=== PATIENT | female | born 1945 | race Caucasian/White ===

== ENCOUNTER 2024-08-02 12:07 | Emergency (ER) | payer OTHER ==
--- OUTSIDE RECORDS SUMMARY | 2024-08-02 12:11 | XMS REPORT | Continuity of Care Document ---
Author Name Unknown Address [address] [address] [place] [address] [facility] thconnect Address [address] [place] [address] Care Team Providers Care Bench Worker Binding Name Role Phone Unavailable Unavailable Unavailable Encounters Start Date/Time End Date/Time Encounter Type Admission Type Attending Clinicians Care Facility Care Department Encounter ID Source 2024-05-16 13:06:00 Outpatient [facility] [id number] [facility] 2023-12-08 16:20:00 Outpatient [facility] [id number] [facility] 2023-09-21 08:34:02 Outpatient [facility] [id number] [facility] 2023-06-01 13:59:01 2023-06-01 13:59:01 Outpatient [facility] [id number] Denny F Esau 2023-03-24 09:03:10 2023-03-24 09:03:10 Outpatient [facility] [id number] Denny F Esau 2023-03-17 16:33:35 2023-03-17 16:33:35 Outpatient [facility] [id number] Denny F Esau 2023-03-04 14:29:42 2023-03-04 14:29:42 Outpatient [facility] [id number] Denny Cifuentes Results Test Description Test Time Test Comments Results Result Co mments Source HEPATITIS PANEL, [id number] 04:38:46* Test Item Value Reference Range Interpretation Comme nts HEPATITIS A IgM (test code = 22189) NON-REACTIVE NON-REACTIVE HEPATITIS B CORE IgM (test code = 4644) NON-REACTIVE NON-REACTIVE HEPATITIS B SURF AG (test code = 2739) NON-REACTIVE NON-REACTIVE HEPATITIS C ANTIBODY (test code = 4675) NON-REACTIVE NON-REACTIVE INTERPRETATION HEPATITIS A: (test code = 2552) (NOTE) Hepatitis A sero logy shows no evidence of acute hepatitis A. INTERPRETATION HEPATITIS B: (test code = 46734) (NOTE) Hepatitis B sero logy shows no evidence of acute hepatitis B andno indication of exposure to hepatitis B virus in the previous dorota eight months. INTERPRETATION HEPATITIS C: (test code = 57893) (NOTE) Hepatitis C sero logy shows no evidence of exposure to hepatitisC virus at this time. It can take up to 12 months after exposure tothe hepatitis C virus for antibodies to become detectable in the blood in certain patients. UNLESS OTHERWISE INDICATED, ALL TESTING PERFORMED AT [facility] [address] [place] [address] COAL TRAMMER: SUSAN MORAN M.D. CLIA NUMBER [id number] [place]. [id number] CBC W/AUTO DIFF WITH [id number] 04:33:17* Test Item Value Reference Range Interpretation Comme nts WBC (test code = 1001) 5.6 K/UL 3.5-11.0 RBC (test code = 1002) 4.79 M/UL 3.80-5.40 HEMOGLOBIN (test code = 1003) 11.9 G/DL 11.5-15.5 HEMATOCRIT (test code = 1004) 37.0 % 34.0-45.0 MCV (test code = 1005) 77.2 fL 80.0-99.0 L MCH (test code = 1006) 24.8 PG 25.0-33.0 L MCHC (test code = 1007) 32.2 G/DL 31.0-36.0 RDW (test code = 1038) 16.1 % 11.5-15.0 H NEUTROPHILS (test code = 1008) 63.1 % LYMPHOCYTES (test code = 1010) 27.2 % MONOCYTES (test code = 1011) 9.3 % EOSINOPHILS (test code = 1012) 0.0 % BASOPHILS (test code = 1013) 0.2 % IMMATURE GRANULOCYTES (test code = 1036) 0.2 % NUCLEATED RBCS (test code = 1065) 0.0 /100 WBC'S See_Comment [Automated messa ge] The system which generated this result transmitted reference range: 0.0. The reference range was not used to interpret this result as normal/abnormal. PLATELET COUNT (test code = 1015) 223 K/UL 130-400 ABSOLUTE NEUTROPHILS (test code = 1066) 3.55 K/UL 1.50-7.50 ABSOLUTE LYMPHOCYTES (test code = 1067) 1.53 K/UL 1.00-4.00 ABSOLUTE MONOCYTES (test code = 1068) 0.52 K/UL 0.20-1.00 ABSOLUTE EOSINOPHILS (test code = 1040) 0.00 K/UL 0.00-0.50 ABSOLUTE BASOPHILS (test code = 1069) 0.01 K/UL 0.00-0.20 ABS IMMATURE GRANULOCYTES (test code = 1020) 0.01 K/UL 0.00-0.10 ABS NUCLEATED RBCS (test code = 05848) 0.00 K/UL 0.00-0.11 RPR REFLEX TO T. PALLIDUM - [id number] 03:32:36* Test Item Value Reference Range Interpretation Comme nts RPR (test code = 34742) NON-REACTIVE NON-REACTIVE RPR TITER (test code = 3500) NOT INDIC. TITER NOT INDIC.
[2024-08-02 13:17] LABS: Absolute Lymphocytes (CBC) 1.4 K/uL (0.7-4.9); Absolute Monocytes 0.4 K/uL (0.1-1.3); Absolute Neutrophil 3.9 K/uL (1.8-8.0); Basophils % 0.3 % (0-1.3); Hematocrit 40.8 % (36.0-45.0); Hemoglobin 13.1 g/dL (12.0-15.0); Lymphocytes % 24.1 % (15.3-44.8); MCH 24.1 pg (27.0-35.0); MCHC 32.2 g/dL (32.0-36.0); MCV 74.9 fL (80-100); MPV 7.6 fL (7.6-11.3); Monocytes % 7.4 % (3.3-12.3); Neutrophils % 68.2 % (41.7-73.7); Nucleated Red Blood Cells % 0.2 % (0-0); Platelets 247 thou/uL (152-406); RBC Red Blood Cell Count 5.44 M/uL (3.86-4.86); Red Cell Distribution Width 15.9 % (12.1-15.2)
[2024-08-02 13:19] LABS: PT Prothrombin Time 11.3 SECONDS (9.4-12.5); PTT, Activated Partial Thromb 29.7 SECONDS (24.3-36.9); Protime INR 1.01
[2024-08-02 13:45] LABS: Albumin 3.7 g/dL (3.4-5.0); Albumin/Globulin Ratio 1.1 (1.1-1.8); Anion Gap 7.8 mEq/L (5.0-15.0); Bilirubin Direct 0.2 mg/dL (0-0.2); Bilirubin Indirect, Calculated 0.3 mg/dL (0.2-0.8); Bilirubin Total 0.5 mg/dL (0.2-1.0); Globulin 3.4 g/dL (2.3-3.5); Magnesium 2.4 mg/dL (1.6-2.4); Potassium 3.8 mEq/L (3.5-5.1); Protein, Total 7.1 g/dL (6.4-8.2); Troponin High Sensitivity 4.1 pg/mL (<58.9)
--- NOTE | 2024-08-02 15:12 | RAD REPORT ---
EXAMINATION: MRI BRAIN WITHOUT CONTRAST CLINICAL INDICATION: r/o stroke TECHNIQUE: Multiplanar multisequence MR images of the brain were obtained without intravenous contras t. Unless otherwise specified, incidental findings do not require dedicated imaging follow-up. COMPARISON: No prior exam. FINDINGS: INTRACRANIAL: Diffusion-weighted images show no acute or early subacute infarction. There is mild bra in atrophy with mildT2/FLAIR hyperintensities in the periventricular and deep white matter regions, likely representing chronic microvascular ischemic changes. There is no mass effect or midline shift. No abnormal extraaxial fluid collection. VASCULATURE: Normal signal voids in the larger intracranial arteries and dural venous sinuses. SINUSES: The paranasal sinuses and mastoid air cells are predominantly clear. BONE: The marrow signal pattern is within normal limits. IMPRESSION: Negative for acutre CVA or other acute intracranial finding.
--- NOTE | 2024-08-02 15:15 | EDPHYS ---
Physician Documentation [facility] Name: Tio Astudillo Age: 78 yrs Sex: Female : 1945 Arrival Date: 08/02/2024 Time: 12:07 Bed 25 Private MD: ED Physician Salomon Ivan HPI: 08/02 13:32 This 78 yrs old Female presents to ER via Ambulatory with complaints of RULE OUT sp3 STROKE-DR RIVAS SENT. 13:32 78-year-old female with history of hypertension was due to get elective right knee sp3 orthopedic surgery however yesterday patient had episode of memory loss and altered mental status with no focal motor weakness and therefore was sent by Dr. Rivas to the ED for evaluation of possible CVA. Patient currently has no symptoms and memory is fully intact confirmed by family. They present to the ED only referred for imaging. No symptoms and review of systems completely negative.. Historical: - Allergies: 12:26 No Known Allergies; iw - PMHx: 12:26 Hypertensive disorder; iw - PSHx: 12:26 left arm; right wrist; iw - Immunization history:: Adult Immunizations not up to date. - Infectious Disease History:: Denies. - Social history:: Smoking status: Patient denies any tobacco usage or history of. ROS: 13:33 Constitutional: Negative for fever, chills, and weight loss, Eyes: Negative for injury, sp3 pain, redness, and discharge, ENT: Negative for injury, pain, and discharge, Neck: Negative for injury, pain, and swelling, Cardiovascular: Negative for chest pain, palpitations, and edema, Respiratory: Negative for shortness of breath, cough, wheezing, and pleuritic chest pain, Abdomen/GI: Negative for abdominal pain, nausea, vomiting, diarrhea, and constipation, Back: Negative for injury and pain, MS/Extremity: Negative for injury and deformity, Skin: Negative for injury, rash, and discoloration, Psych: Negative for depression, anxiety, suicide ideation, homicidal ideation, and hallucinations, Allergy/Immunology: Negative for hives, rash, and allergies, Endocrine: Negative for neck swelling, polydipsia, polyuria, polyphagia, and marked weight changes, Hematologic/Lymphatic: Negative for swollen nodes, abnormal bleeding, and unusual bruising, 13:33 All other systems are negative, Exam: 13:33 Constitutional: This is a well developed, well nourished patient who is awake, alert, sp3 and in no acute distress. Head/Face: Normocephalic, atraumatic. Eyes: Pupils equal round and reactive to light, extra-ocular motions intact. Lids and lashes normal. Conjunctiva and sclera are non-icteric and not injected. Cornea within normal limits. Periorbital areas with no swelling, redness, or edema. Neck: Trachea midline, no thyromegaly or masses palpated, and no cervical lymphadenopathy. Supple, full range of motion without nuchal rigidity, or vertebral point tenderness. No Meningismus. Chest/axilla: Normal chest wall appearance and motion. Nontender with no deformity. No lesions are appreciated. Cardiovascular: Regular rate and rhythm with a normal S1 and S2. No gallops, murmurs, or rubs. Normal PMI, no JVD. No pulse deficits. Respiratory: Lungs have equal breath sounds bilaterally, clear to auscultation and percussion. No rales, rhonchi or wheezes noted. No increased work of breathing, no retractions or nasal flaring. Abdomen/GI: Soft, non-tender, with normal bowel sounds. No distension or tympany. No guarding or rebound. No evidence of tenderness throughout. Back: No spinal tenderness. No costovertebral tenderness. Full range of motion. Skin: Warm, dry with normal turgor. Normal color with no rashes, no lesions, and no evidence of cellulitis. MS/ Extremity: Pulses equal, no cyanosis. Neurovascular intact. Full, normal range of motion. Neuro: Awake and alert, GCS 15, oriented to person, place, time, and situation. Cranial nerves II-XII grossly intact. Motor strength 5/5 in all extremities. Sensory grossly intact. Cerebellar exam normal. Normal gait. Psych: Awake, alert, with orientation to person, place and time. Behavior, mood, and affect are within normal limits. 13:33 ECG was reviewed by the Attending Physician. EKG demonstrates normal sinus rhythm at 72 bpm with normal intervals, normal QRS, normal axis, nonspecific diffuse ST/T changes without evidence of acute ischemia. Vital Signs: 12:24 BP 113 / 68; Pulse 75; Resp 16; Temp 97.6; Pulse Ox 95% on R/A; Weight 60.33 kg; Height iw 5 ft. 1 in. ; 14:21 BP 124 / 77; Pulse 62; Resp 21; Pulse Ox 97% on R/A; MAP 93 mmHg; Pain 0/10; tm6 12:24 Body Mass Index 25.13 (60.33 kg, 154.94 cm) iw 14:21 Pain Scale: Adult tm6 MDM: 12:42 Medical Screening Exam initiated sp3 13:34 Data reviewed: vital signs, nurses notes, lab test result(s), EKG, radiologic studies. sp3 ED course: 78-year-old female sent by outpatient team for evaluation for possible CVA due to a resolved memory loss that occurred yesterday. NIH stroke scale currently 0. Currently at his facility has no functioning CT scans. MRI has been ordered of the brain. Routine lab work pending as well. Normal neurological exam. If workup negative we will safely discharge patient home to outpatient follow-up.. 15:14 ED course: MRI negative as well as labs. Patient has had no abnormal neurological sp3 function here. Will diagnosis TIA and have patient follow-up with PCP and neurology.. 08/02 12:43 Order name: Basic Metabolic Panel; Complete Time: 15:14 sp3 08/02 12:43 Order name: CBC with Diff; Complete Time: 15:14 sp3 08/02 12:43 Order name: Hepatic Function; Complete Time: 15:14 sp3 08/02 12:43 Order name: High Sensitivity Troponin; Complete Time: 15:14 sp3 08/02 12:43 Order name: Magnesium; Complete Time: 15:14 sp3 08/02 12:43 Order name: Protime (+inr); Complete Time: 15:14 sp3 08/02 12:43 Order name: Ptt, Activated; Complete Time: 15:14 sp3 08/02 12:43 Order name: Troponin High Sensitivity sp3 08/02 14:40 Order name: Brain Wo Cont; Complete Time: 15:14 EDMS 08/02 12:43 Order name: EKG; Complete Time: 12:43 sp3 08/02 12:43 Order name: Cardiac monitoring; Complete Time: 13:14 sp3 08/02 12:43 Order name: EKG - Nurse/Tech; Complete Time: 13:14 sp3 08/02 12:43 Order name: IV Saline Lock; Complete Time: 13: sp3 08/02 12:43 Order name: Labs collected and sent; Complete Time: 13: sp3 08/02 12:43 Order name: NPO; Complete Time: 13: sp3 08/02 12:43 Order name: O2 Per Protocol; Complete Time: 13:14 sp3 08/02 12:43 Order name: O2 Sat Monitoring; Complete Time: 13:14 sp3 08/02 12:43 Order name: Stroke Swallow Screen; Complete Time: 13:29 sp3 Administered Medications: No medications were administered Disposition Summary: 08/02/24 15:15 Discharge Ordered Notes: Location: Home sp3 Condition: Stable sp3 Diagnosis - TIA, memory loss resolved sp3 Followup: sp3 - With: Private Physician - When: Upon discharge from the Emergency Department - Reason: Continuance of care Followup: sp3 - With: Sae Mae MD - When: Upon discharge from the Emergency Department - Reason: Recheck today's complaints Discharge Instructions: - Discharge Summary Sheet bd - Transient Ischemic Attack sp3 Forms: - SBAR form bd - Medication Reconciliation Form sp3 - Antibiotic Education sp3 - Prescription Opioid Use sp3 - Patient Portal Instructions sp3 - Leadership Thank You Letter sp3 Signatures: Dispatcher [employer] Michelle Corona RN RN iw Patel, Setul, MD MD sp3 Corrections: (The following items were deleted from the chart) 14:40 12:34 Stroke Protocol ordered. JIGAR KIMBALL
--- NOTE | 2024-08-02 15:15 | ER ---
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 Coronavirus screen: At this time, the client does not indicate any symptoms associated with coronavirus-19. Ebola Screen: No symptoms or risks identified at this time. Initial Sepsis Screen: Does the patient meet any 2 criteria? No. Patient's initial sepsis screen is negative. Does the patient have a suspected source of infection? No. Patient's initial sepsis screen is negative. Risk Assessment: Do you want to hurt yourself or someone else? Patient reports no desire to harm self or others. Onset of symptoms was August 01, 2024. 12:24 Method Of Arrival: Ambulatory iw 12:24 Acuity: MALVIN 3 iw Historical: - Allergies: 12:26 No Known Allergies; iw - PMHx: 12:26 Hypertensive disorder; iw - PSHx: 12:26 left arm; right wrist; iw - Immunization history:: Adult Immunizations not up to date. - Infectious Disease History:: Denies. - Social history:: Smoking status: Patient denies any tobacco usage or history of. Screenin:30 [facility] ED Fall Risk Assessment (Adult) History of falling in the last 3 months, tm6 including since admission No falls in past 3 months (0 pts) Confusion or Disorientation No (0 pts) Intoxicated or Sedated No (0 pts) Impaired Gait No (0 pts) Mobility Assist Device Used No (0 pt) Altered Elimination No (0 pt) Score/Fall Risk Level 0 - 2 = Low Risk Oriented to surroundings, Maintained a safe environment, Educated pt \T\ family on fall prevention, incl call for assistance when getting out of bed. Abuse screen: Denies threats or abuse. Denies injuries from another. Nutritional screening: No deficits noted. Tuberculosis screening: No symptoms or risk factors identified. 13:29 [place] Swallow Protocol Exclusion Criteria: Exclusion Criteria Result: Proceed Brief tm6 Cognitive Screen What is your name? Normal, Where are you right now? Normal, What year is it? Normal. Oral Mechanism Examination Facial Symmetry: Normal, Motion: Normal, Lip Closure: Normal, Oral Mechanism Result: Normal. 3 oz Water Swallow Challenge: Pt able to drink all water without stopping, coughing, choking or throat clearing: Yes Result: PASS MD Notified: Salomon Ivan MD. Assessment: 12:30 General: Appears in no apparent distress. Behavior is calm, cooperative. Pain: Denies tm6 pain. Neuro: Level of Consciousness is awake, alert, obeys commands, Oriented to person, place, time, situation, Reports forgetfulness yesterday morning. Denies weakness blurred vision dizziness, difficulty swallowing, paresthesias numbness headache. Cardiovascular: Patient's skin is warm and dry. Respiratory: Airway is patent Respiratory effort is even, unlabored, Respiratory pattern is regular, symmetrical. GI: No signs and/or symptoms were reported involving the gastrointestinal system. Abdomen is flat, non-distended. : No signs and/or symptoms were reported regarding the genitourinary system. EENT: No signs and/or symptoms were reported regarding the EENT system. Derm: No signs and/or symptoms reported regarding the dermatologic system. Musculoskeletal: No signs and/or symptoms reported regarding the musculoskeletal system. 15:32 Reassessment: Patient appears in no apparent distress at this time. Patient and/or jb4 family updated on plan of care and expected duration. Pain level reassessed. Patient is alert, oriented x 3, equal unlabored respirations, skin warm/dry/pink. Vital Signs: 12:24 BP 113 / 68; Pulse 75; Resp 16; Temp 97.6; Pulse Ox 95% on R/A; Weight 60.33 kg; Height iw 5 ft. 1 in. ; 14:21 BP 124 / 77; Pulse 62; Resp 21; Pulse Ox 97% on R/A; MAP 93 mmHg; Pain 0/10; tm6 12:24 Body Mass Index 25.13 (60.33 kg, 154.94 cm) iw 14:21 Pain Scale: Adult tm6 ED Course: 12:13 Patient arrived in ED. sj2 12:20 Salomon Ivan MD is Attending Physician. sp3 12:26 Triage completed. iw 12:30 Patient has correct armband on for positive identification. Bed in low position. Call tm6 light in reach. Side rails up X 1. Provided Education on: use of call velarde. Client placed on continuous cardiac and pulse oximetry monitoring. NIBP monitoring applied. monitoring specialist on. Pulse ox on. NIBP on. Door closed. Noise minimized. Pillow given. 12:50 Greg Joseph, RN is Primary Nurse. tm6 13:01 Basic Metabolic Panel Sent. tm6 13:01 CBC with Diff Sent. tm6 13:01 Hepatic Function Sent. tm6 13:01 High Sensitivity Troponin Sent. tm6 13:01 Magnesium Sent. tm6 13:01 Protime (+inr) Sent. tm6 13:01 Troponin High Sensitivity Sent. tm6 13:01 Inserted saline lock: 20 gauge in right antecubital area, using aseptic technique. tm6 Blood collected. Flushed with 10 mL NS. 13:14 EKG done, by ED staff, reviewed by Salomon Ivan MD. tm6 15:05 Brain Wo Cont In Process Unspecified. EDMS 15:17 Sae Mae MD is Referral Physician. sp3 15:32 No provider procedures requiring assistance completed. IV discontinued, intact, jb4 bleeding controlled, No redness/swelling at site. Pressure dressing applied. Administered Medications: No medications were administered Medication: 12:30 VIS not applicable for this client. tm6 Outcome: 15:15 Discharge ordered by . sp3 15:32 Discharged to home ambulatory, jb4 15:32 Condition: stable 15:32 Discharge instructions given to patient, Instructed on discharge instructions, follow up and referral plans. Demonstrated understanding of instructions, follow-up care, 15:32 Patient left the ED. jb4 Signatures: Dispatcher [employer] EDMS Michelle Mcgowan, ADALID RN Salomón Garza RN RN jb4 Salomon Ivan MD MD sp3 Greg Joseph, ADALID RN tm6 Camilla Jimenez sj2 Corrections: (The following items were deleted from the chart) 12:27 12:24 BP 113 / 68; Pulse 75bpm; Resp 16bpm; Pulse Ox 95% RA; Temp 97.6F; iw jose r
[2024-08-02 16:05] VITALS: TEMP 97.6
[2024-08-02 16:11] VITALS: BP 124/77; O2SAT 97
--- NOTE | 2024-08-08 11:04 | EKG ---
Test Date: 2024-08-02 Test Time: 13:09:59 Bus Escort: BELLA MEASUREMENT RESULTS: Intervals: Rate: 72 SD: 168 QRSD: 68 QT: 380 QTc: 416 Novice: P: 64 SD: 168 QRS: -4 T: 49 INTERPRETIVE STATEMENTS: Normal sinus rhythm Low voltage QRS Borderline ECG Compared to ECG 03/15/2024 09:32:15 Low QRS voltage now present Myocardial infarct finding no longer present Electronically Signed On 08-08-24 10:57:51 BRICKLAYER'S ASSISTANT by Himanshu aYn
== END 2024-08-02 15:32 | disposition home or self-care (01) ==
LOC: ER 12:07
DX: G45.9 Transient cerebral ischemic attack, unspecified (principal); I10 Essential (primary) hypertension
CPT/HCPCS: 36415; 70551; 80048; 80076; 83735; 84484; 85025; 85610; 85730; 93005; 99284